=== PATIENT | male | born 1975 | race Asian ===

== ENCOUNTER 2018-11-20 18:14 | Emergency (ER) | payer OTHER ==
[~2018-11-20] VITALS: Ht 172.7 cm; Wt 72.6 kg
--- NOTE | 2018-11-20 18:42 | NUR ---
PATIENT WAS SEEN BY MD. MEDICATION GIVEN ORDERED...
[2018-11-20] MEDS ORDERED: IBUPROFEN 800 MG TABLET ONE (18:45)
[2018-11-20] MEDS ORDERED: IBUPROFEN 800 MG TABLET PO ONE (18:45)
--- NOTE | 2018-11-20 19:11 | NUR ---
Patient in bed resting, NAD. Ice pack applied to back of the neck.
--- NOTE | 2018-11-20 19:38 | NUR ---
Patient discharged to home in stable conditon. Written and verbal after care instructions given. Patient verbalizes understanding of instructions. Patient ambulated with stable gait.
[2018-11-20 19:39] VITALS: BP 128/81
== END 2018-11-20 19:39 | disposition home or self-care (01) ==
LOC: ER 18:14
DX: S13.4XXA Sprain of ligaments of cervical spine, initial encounter (principal); M25.511 Pain in right shoulder; M25.512 Pain in left shoulder; V89.2XXA Person injured in unspecified motor-vehicle accident, traffic, initial encounter; Y93.89 Activity, other specified; Y92.89 Other specified places as the place of occurrence of the external cause; Y99.8 Other external cause status
CPT/HCPCS: A4663